=== PATIENT | male | born 1940 | race Caucasian/White ===

== ENCOUNTER 2022-11-07 12:12 | Observation (INO) | payer OTHER ==
--- OUTSIDE RECORDS SUMMARY | 2022-11-07 12:15 | XMS REPORT | Continuity of Care Document ---
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 2-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 00:00: [place] 00 MD [facility] Allergies, Adverse Reactions, Alerts Allergy Allergy Status Severity Reaction(s) Onset Inactive Treating Comm ents Source Name Type Date Date Clinician NO KNOWN Drug Active Univers ALLERGIE Class [facility] [place] [facility] Family History Family Member Diagnosis Comments Start Date Stop Date Source Natural father -Multiple Myeloma [facility] Social History Social Habit Start Date Stop Date Quantity Comments Source Alcohol intake 2018-12-16 2018-12-16 Current drinker Unive rsity of 00:00:00 00:00:00 of alcohol [facility] Tobacco use and 2018-11-06 2018-11-06 Smokeless tobacco Un iversity of exposure 00:00:00 00:00:00 non-user [facility] Sex Assigned At [birth year] [facility] 00:00:00 00:00:00 Abhijeet donovan [facility] Smoking Status Start Date Stop Date Source Never smoked tobacco [facility] Medications Ordered Filled Start Stop Current Ordering Indication Dosage Frequency Signature Comments Components Source Medication Medication Date Date Medication? Clinician (SIG) Name Name aspirin 81 Yes 81mg Take 81 mg U nivers mg EC 4-25 by mouth ity of tablet 13:05: daily. [place] 37 MD Melissa gonzalez [facility] tamsulosin 2017-12 Yes 1{capsu Take 1 Un rey (FLOMAX) 1-28 le} capsule by ity o f 0.4 mg 24 00:00: mouth [place] hr capsule 00 daily. MD Melissa gonzalez [facility] clopidogrel 2017-12 Yes 1{tbl} Take 1 Un rey (PLAVIX) 75 1-15 tablet by ity of mg tablet 00:00: mouth [place] 00 daily. MD Melissa gonzalez [facility] atorvastati 2017-12 Yes 1{tbl} Take 1 Un rey n (LIPITOR) 1-15 tablet by ity of 40 mg 00:00: mouth [place] tablet 00 daily. MD Melissa gonzalez [facility] perindopril 2017-12 Yes 1{tbl} Take 1 Un rey (ACEON) 4 1-15 tablet by ity o f MG tablet 00:00: mouth [place] 00 daily. MD Melissa gonzalez [facility] TOPROL XL 2017-12 Yes 1{tbl} Take 1 Univ ers 25 mg 24 hr 1-15 tablet by ity of tablet 00:00: mouth [place] 00 daily. MD Melissa gonzalez [facility] Procedures This patient has no known procedures. Plan of Care Planned Activity Planned Date Details Comments Source Future Scheduled 2022-06-27 COVID-19 Vaccination [facility] [place] Test 18:22:50 (#1) [code = COVID-19 Cancer Vaccination (#1)] Center Encounters Start End Encounter Admission Attending Care Care Encounter Source Date/Time Date/Time Type Type Clinicians Facility Department ID 2022-08-17 2022-08-17 Emergency X BRAIN KOWALSKI ERT [id number] Univers 13:14:00 14:50:00 FAROOQ willams [facility] Results This patient has no known results.
--- OUTSIDE RECORDS SUMMARY | 2022-11-07 12:15 | XMS REPORT | Clinical Summary ---
:1940 Author Organization [facility] MD [facility] Address [address] [place] [address] Care Team Providers Name Role Phone Laquita Morrison MD Primary Care Provider Gustabo Vega MD Unavailable Cynthia Garcia MD Unavailable [phone] Shereen Jeffery MD Unavailable Allergies No known active allergies Medications Medication Sig Dispensed Refills Start Date End Date Status TOPROL XL 25 mg 24 hr Take 1 tablet by 0 10/16/2018 Active tablet mouth daily. clopidogrel (PLAVIX) 75 Take 1 tablet by 0 8 Active mg tablet mouth daily. atorvastatin (LIPITOR) Take 1 tablet by 0 10/16/2018 Active 40 mg tablet mouth daily. perindopril (ACEON) 4 Take 1 tablet by 0 10/16/2018 Active MG tablet mouth daily. tamsulosin (FLOMAX) 0.4 Take 1 capsule by 0 10/29/20 18 Active mg 24 hr capsule mouth daily. aspirin 81 mg EC tablet Take 81 mg by 0 Active mouth daily. 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 10 y ear 12/01/2013 cycle HERNIA REPAIR 12/02/2009 - 01/01/2010 CORONARY ARTERY BYPASS 12/02/2005 - Dr Heath ceja GRAFT 01/01/2006 OK FTH/GFT FREE W/DIRECT 12/12/2018 Neck/Left Procedu re: FULL CLOSURE N/E/E/L 20 SQ CM/< THICK NESS GRAFT OF EAR; Surgeon: Laquita Morrison MD; Loc ation: MAIN OR; Service : [facility] - HEAD & NECK SURG PAWAN OK EXCISION MALIGNANT 12/12/2018 Ear/Left Procedure: EXCISION OF LESION F/E/E/N/L 0.6-1.0 CM ALBER GNANT LESION OF EAR; Surgeon: Eloy Jeffery MD; Locat ion: MAIN OR; Service : [facility] - HEAD & NECK SURG [facility] Medical History Medical History Date Comments Myocardial infarction 12/2005 1x stent; annual m edical exams with Dr Lu Garcia Basal cell carcinoma of skin Left ear- 2017. Current appointment Family History Medical History Relation Name Comments -Multiple Myeloma Father Lucas West 1969 Relation Name Status Comments Father Lucas West Social History Tobacco Use Types Packs/Day Years Used Date Smoking Tobacco: Never Smokeless Tobacco: Never Alcohol Use Standard Drinks/Week Comments Yes 0 (1 standard drink = 0.6 oz pure alcoho l) Sex Assigned at Date Recorded Not on file Obstetrics History Last Filed Vital Signs Not on file Plan of Treatment Health Maintenance Due Date Last Done Comments COVID-19 Vaccination (#1) 04/29/1941 Results Not on fileafter 11/07/2021 Insurance Payer Benefit Plan Subscriber ID Effective Phone Address Typ e / Group Dates MEDICARE MEDICARE PART [id number] 2005-Pres [phone] [facility] Medicare A AND B ent 82 SOL[address] [place] [address] A[employer] MANAGED AETNA HMO [id number] 2004-Prese [address] HMO CARE EXXON/CANCER nt [id number] [place] [address] Care Teams 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
[2022-11-07 12:54] LABS: Absolute Lymphocytes (CBC) 4.2 K/uL (0.7-4.9); Hematocrit 42.8 % (39.6-49.0); Lymphocytes % 29.8 % (15.3-44.8); MCV 96.6 fL (80-100); MPV 7.4 fL (7.6-11.3); RBC Red Blood Cell Count 4.43 M/uL (4.33-5.43)
[2022-11-07 12:57] LABS: Protime INR 0.95
[2022-11-07 13:12] LABS: Troponin High Sensitivity 5.8 pg/mL (<58.9)
[2022-11-07 13:13] LABS: Potassium 4.1 mmol/L (3.5-5.1)
[2022-11-07 13:14] LABS: SARS-CoV-2 Antigen Rapid Res Negative (Negative)
--- NOTE | 2022-11-07 13:22 | RAD REPORT ---
EXAM DESCRIPTION: RAD - Chest Single View - 11/07/2022 1:10 pm CLINICAL HISTORY: CHEST PAIN COMPARISON: Two view chest 09/16/2008 TECHNIQUE: AP portable chest image was obtained 11/07/2022 1:10 pm . FINDINGS: Lungs are clear. Heart and vasculature are normal. No measurable pleural effusion and no p neumothorax. No acute bony abnormality seen. No acute aortic findings suspected. IMPRESSION: No acute cardiopulmonary process.
--- NOTE | 2022-11-07 13:53 | ER ---
Nurse's Notes [facility] Name: Dinh West Age: 82 yrs Sex: Male : 1940 Arrival Date: 11/07/2022 Time: 12:13 Bed 2 Private MD: Anabell Tam C Diagnosis: Chest pain, unspecified;Atherosclerotic heart disease of [place] coronary artery with angina pectoris Presentation: 11/07 12:15 Chief complaint: Patient states: [facility]; today was at DR Corrigan 1 office and started to have CP at 1120, states moves across chest and up into VINH shoulders. Denies SOB. Coronavirus screen: Vaccine status: Patient reports receiving the 2nd dose of the covid vaccine. Client denies travel out of the [place] in the last 14 days. Ebola Screen: Patient negative for fever greater than or equal to 101.5 degrees Fahrenheit, and additional compatible Ebola Virus Disease symptoms. Initial Sepsis Screen: Does the patient meet any 2 criteria? No. Patient's initial sepsis screen is negative. Does the patient have a suspected source of infection? No. Patient's initial sepsis screen is negative. Risk Assessment: Do you want to hurt yourself or someone else? Patient reports no desire to harm self or others. Onset of symptoms was November 04, 2022. 12:15 Method Of Arrival: Ambulatory vg1 12:15 Acuity: CHITRA 2 vg1 Triage Assessment: 12:17 General: Appears uncomfortable, Behavior is calm, cooperative. Pain: Complains of pain vg1 in chest Pain radiates to VINH shoulder Pain currently is 7 out of 10 on a pain scale. Pain began 2-3 days ago. Cardiovascular: Patient's skin is warm and dry. Respiratory: Airway is patent Respiratory effort is even, unlabored, Denies shortness of breath. Historical: - Allergies: 12:17 No Known Allergies; vg1 - Home Meds: 12:17 Metoprolol Tartrate Oral [Active]; Plavix Oral [Active]; Lipitor Oral [Active]; Flomax vg1 Oral [Active]; - PMHx: 12:17 Myocardial infarction; Hypertensive disorder; Enlarge Prostate; vg1 - PSHx: 12:17 Stented artery; vg1 - Immunization history:: Client reports receiving the 2nd dose of the Covid vaccine. - Social history:: Smoking status: Patient denies any tobacco usage or history of. - Family history:: not pertinent. - Hospitalizations: : No recent hospitalization is reported. Screenin:47 Abuse screen: Denies threats or abuse. Denies injuries from another. Nutritional kc6 screening: No deficits noted. Tuberculosis screening: No symptoms or risk factors identified. Fall Risk None identified. Assessment: 12:47 General: Appears in no apparent distress. comfortable, Behavior is calm, cooperative, kc6 appropriate for age. Pain: Complains of pain in left scapular area, right scapular area, mid-sternal area, right breast and left breast Pain does not radiate. Pain currently is 2 out of 10 on a pain scale. Quality of pain is described as sharp, Pain began 2-3 days ago. Is intermittent, Alleviated by rest, Aggravated by increased activity. Neuro: Barraza Agitation-Sedation Scale (RASS): 0 - Alert and Calm Level of Consciousness is awake, alert, obeys commands, Oriented to person, place, time, situation, Appropriate for age. Cardiovascular: Heart tones S1 S2 present Capillary refill < 3 seconds. Respiratory: Airway is patent Trachea midline Respiratory effort is even, unlabored, Respiratory pattern is regular, symmetrical, Breath sounds are clear bilaterally. GI: No signs and/or symptoms were reported involving the gastrointestinal system. : No signs and/or symptoms were reported regarding the genitourinary system. EENT: No signs and/or symptoms were reported regarding the EENT system. Derm: No signs and/or symptoms reported regarding the dermatologic system. Skin is intact, Skin is pink, warm \T\ dry. Musculoskeletal: No signs and/or symptoms reported regarding the musculoskeletal system. Circulation, motion, and sensation intact. Capillary refill < 3 seconds, Range of motion: intact in all extremities. 13:47 Reassessment: Patient appears in no apparent distress at this time. No changes from kc6 previously documented assessment. Patient and/or family updated on plan of care and expected duration. Pain level reassessed. Patient is alert, oriented x 3, equal unlabored respirations, skin warm/dry/pink. Vital Signs: 12:15 BP 162 / 87; Pulse 78; Resp 16; Temp 98.6; Pulse Ox 97% ; Weight 77.11 kg; Height 5 ft. vg1 8 in. (172.72 cm); Pain 7/10; 12:47 BP 156 / 84; Pulse 78; Resp 15 S; Pulse Ox 97% on R/A; Pain 2/10; kc6 13:47 BP 146 / 70; Pulse 80; Resp 15 S; Pulse Ox 91% on R/A; kc6 19:30 BP 134 / 70; Pulse 91; Resp 15; Pulse Ox 96% on R/A; ll3 20:43 BP 121 / 83; Pulse 95; Resp 17; Pulse Ox 95% on R/A; ll3 12:15 Body Mass Index 25.85 (77.11 kg, 172.72 cm) vg1 ED Course: 12:13 Patient arrived in ED. rg4 12:14 Anabell Tam MD is Private Physician. rg4 12:17 Triage completed. vg1 12:17 Arm band placed on. vg1 12:28 Joshua Royal MD is Attending Physician. rn 12:38 Allie uY RN is Primary Nurse. kc6 12:41 SARS RAPID Sent. kc6 12:45 Inserted saline lock: 20 gauge in right forearm, using aseptic technique. Blood mb9 collected. 12:47 Basic Metabolic Panel Sent. kc6 12:47 CBC with Diff Sent. kc6 12:47 NT PRO-BNP Sent. kc6 12:47 PT-INR Sent. kc6 12:47 Troponin HS Sent. kc6 13:12 XRAY Chest (1 view) In Process Unspecified. EDMS 13:32 Angio Aorta For Dissection In Process Unspecified. EDMS 13:53 Anabell Tam MD is Hospitalizing Provider. rn 19:00 Patient has correct armband on for positive identification. Bed in low position. Call ll3 light in reach. Side rails up X 1. Client placed on continuous cardiac and pulse oximetry monitoring. NIBP monitoring applied. 20:53 Patient maintains SpO2 saturation greater than 95% on room air. ll3 20:53 No provider procedures requiring assistance completed. Patient admitted, IV remains in ll3 place. Administered Medications: 15:52 Drug: Heparin ([place]-Bolus No thrombolytic) - HEParin 60 units/kg {Co-Signature: suhail quinonez (Adeel Gutierrez RN).} Route: IVP; Site: right antecubital; 19:06 Follow up: Response: No adverse reaction kc6 15:55 Drug: Heparin ([place] Drip) 12 units/kg/hr - (HEParin 54112 units, D5W 500 ml) kc6 {Co-Signature: suhail (Adeel Gutierrez RN).} Route: IV; Rate: calculated rate; Site: right antecubital; 16:05 Drug: Aspirin Chewable Tablet 324 mg Route: PO; kc6 19:06 Follow up: Response: No adverse reaction kc6 Medication: 20:53 VIS not applicable for this client. ll3 Outcome: 13:53 Decision to Hospitalize by Provider. rn 20:53 Admitted to Tele accompanied by nurse, via wheelchair, room 411, with chart, Report ll3 called to LUISA Alcazar 20:53 Condition: stable 20:53 Instructed on the need for admit. 21:16 Patient left the ED. 3 Signatures: Dispatcher [employer] Joshua Chavez MD MD rn Garcia, Rubi rg4 Grecia Schmidt RN RN vg1 Jesus Packer RN RN ll3 Allie Yu RN RN kc6 Sara Parra, RN RN mb9 Adeel Gutierrez RN jd3
--- NOTE | 2022-11-07 13:53 | EDPHYS ---
Physician Documentation [facility] Name: Dinh West Age: 82 yrs Sex: Male : 1940 Arrival Date: 11/07/2022 Time: 12:13 Bed 2 Private MD: Anabell Tam C ED Physician Joshua Royal HPI: 11/07 13:48 This 82 yrs old Male presents to ER via Ambulatory with complaints of Chest Pain. rn 13:48 The patient or guardian reports chest pain that is located primarily in the substernal rn area. Onset: 4 day(s) ago. The pain radiates to Associated signs and symptoms: Pertinent positives: shortness of breath, Pertinent negatives: abdominal pain, cough. The chest pain is described as a heaviness, squeezing. Duration: The patient or guardian reports multiple episodes, that are intermittent. Modifying factors: The symptoms are alleviated by nothing. the symptoms are aggravated by nothing. Severity of pain: At its worst the pain was moderate in the emergency department the pain has improved. The patient has experienced similar episodes in the past. The patient has been recently seen by a physician:. Sent by Dr. Tam for chest pain, intermittent, began a few days ago, at rest, radiates to both shoulders and back. + hx of MT. Stopped his plavix and aspirin 4 days ago in preparation for tooth extraction. Minimal pain currently. . Historical: - Allergies: 12:17 No Known Allergies; vg1 - Home Meds: 12:17 Metoprolol Tartrate Oral [Active]; Plavix Oral [Active]; Lipitor Oral [Active]; Flomax vg1 Oral [Active]; - PMHx: 12:17 Myocardial infarction; Hypertensive disorder; Enlarge Prostate; vg1 - PSHx: 12:17 Stented artery; vg1 - Immunization history:: Client reports receiving the 2nd dose of the Covid vaccine. - Social history:: Smoking status: Patient denies any tobacco usage or history of. - Family history:: not pertinent. - Hospitalizations: : No recent hospitalization is reported. ROS: 13:48 Constitutional: Negative for fever, chills, and weight loss, Eyes: Negative for injury, rn pain, redness, and discharge, Neck: Negative for injury, pain, and swelling, Cardiovascular: Negative for palpitations, and edema, Respiratory: Negative for shortness of breath, cough, wheezing, and pleuritic chest pain, Abdomen/GI: Negative for abdominal pain, nausea, vomiting, diarrhea, and constipation, Back: Negative for injury MS/Extremity: Negative for injury and deformity, Skin: Negative for injury, rash, and discoloration, Neuro: Negative for headache, weakness, numbness, tingling, and seizure. Exam: 13:48 Constitutional: This is a well developed, well nourished patient who is awake, alert, rn and in no acute distress. Head/Face: Normocephalic, atraumatic. Cardiovascular: Regular rate and rhythm. No pulse deficits. Respiratory: No increased work of breathing, no retractions or nasal flaring. Abdomen/GI: soft, non-tender Skin: Warm, dry MS/ Extremity: Pulses equal, no cyanosis Neuro: Awake and alert, GCS 15 16:10 ECG was reviewed by the Attending Physician. rn Vital Signs: 12:15 BP 162 / 87; Pulse 78; Resp 16; Temp 98.6; Pulse Ox 97% ; Weight 77.11 kg; Height 5 ft. vg1 8 in. (172.72 cm); Pain 7/10; 12:47 BP 156 / 84; Pulse 78; Resp 15 S; Pulse Ox 97% on R/A; Pain 2/10; kc6 13:47 BP 146 / 70; Pulse 80; Resp 15 S; Pulse Ox 91% on R/A; kc6 19:30 BP 134 / 70; Pulse 91; Resp 15; Pulse Ox 96% on R/A; ll3 20:43 BP 121 / 83; Pulse 95; Resp 17; Pulse Ox 95% on R/A; ll3 12:15 Body Mass Index 25.85 (77.11 kg, 172.72 cm) vg1 MDM: 12:28 Patient medically screened. rn 13:52 Differential diagnosis: acute myocardial infarction, acute pericarditis, coronary rn artery disease pericarditis, pleurisy, pneumonia, pneumothorax, stable angina, thoracic aortic disection, unstable angina. HEART Score: History: Highly Suspicious (2), ECG: Non specific repolarization disturbance / LBTB / PM (1), Age: > or = 65 years (2), Risk Factors: > or = 3 Risk factors for atherosclerotic disease (2), Troponin: < or = 1 x Normal Limit (0), Total Score = 7. Data reviewed: vital signs, nurses notes, lab test result(s), and as a result, I will admit patient. Counseling: I had a detailed discussion with the patient and/or guardian regarding: the historical points, exam findings, and any diagnostic results supporting the discharge/admit diagnosis, lab results, the need for further work-up and treatment in the hospital. Admission orders: after a detailed discussion of the patient's condition and case, the admit orders are written by me. ED course: Discussed case with josue Farley patient admitted with heparin drip after ct aorta neg. . 11/07 12:28 Order name: Basic Metabolic Panel; Complete Time: 13:22 rn 11/07 12:28 Order name: CBC with Diff; Complete Time: 13:22 rn 11/07 12:28 Order name: NT PRO-BNP; Complete Time: 13:22 rn 11/07 12:28 Order name: PT-INR; Complete Time: 13:22 rn 11/07 12:28 Order name: Troponin HS; Complete Time: 13:22 rn 11/07 12:28 Order name: SARS RAPID; Complete Time: 13:22 rn 11/07 12:28 Order name: XRAY Chest (1 view); Complete Time: 15:17 rn 11/07 12:39 Order name: CT Aorta for Dissection rn 11/07 12:43 Order name: Angio Aorta For Dissection; Complete Time: 15:17 EDME 11/07 15:36 Order name: Ptt, Activated kc6 11/07 15:50 Order name: PTT, Activated Partial Thromb EDMS 11/07 19:39 Order name: Ptt, Activated ll3 11/07 20:28 Order name: PTT, Activated Partial Thromb EDME 11/07 12:28 Order name: EKG; Complete Time: 12:29 rn 11/07 12:28 Order name: Cardiac monitoring; Complete Time: 12:39 rn 11/07 12:28 Order name: EKG - Nurse/Tech; Complete Time: 12:41 rn 11/07 12:28 Order name: IV Saline Lock; Complete Time: 12:47 rn 11/07 12:28 Order name: Labs collected and sent; Complete Time: 12:47 rn 11/07 12:28 Order name: O2 Per Protocol; Complete Time: 12:39 rn 11/07 12:28 Order name: O2 Sat Monitoring; Complete Time: 12:39 rn EC:10 Rate is 78 beats/min. Rhythm is regular. Left axis deviation noted. QRS is positive in rn lead I and negative in lead aVF. TN interval is normal. QRS interval is prolonged at 160 msec. QT interval is normal. No Q waves. T waves are Normal. No ST changes noted. Clinical impression: NSR, bifascicular block. Interpreted by me. Reviewed by me. Administered Medications: 15:52 Drug: Heparin ([place]-Bolus No thrombolytic) - HEParin 60 units/kg {Co-Signature: jeliel kc6 (Adeel Gutierrez RN).} Route: IVP; Site: right antecubital; 19:06 Follow up: Response: No adverse reaction kc6 15:55 Drug: Heparin ([place] Drip) 12 units/kg/hr - (HEParin 77106 units, D5W 500 ml) kc6 {Co-Signature: jd3 (Adeel Gutierrez RN).} Route: IV; Rate: calculated rate; Site: right antecubital; 16:05 Drug: Aspirin Chewable Tablet 324 mg Route: PO; kc6 19:06 Follow up: Response: No adverse reaction kc6 Disposition Summary: 11/07/22 13:53 Hospitalization Ordered Hospitalization Status: Observation rn Provider: Anabell Tam [facility]n [facility] rn Condition: Stable rn Problem: new rn Symptoms: have improved rn Bed/Room Type: Standard rn Room Assignment: 411(11/07/22 20:00) cg Diagnosis - Chest pain, unspecified rn - Atherosclerotic heart disease of [place] coronary artery with angina pectoris rn Forms: - Medication Reconciliation Form rn - SBAR form rn Signatures: Dispatcher [employer] Joshua Chavez MD MD rn Garcia, Cindy, RN RN Grecia Davis RN RN vg1 Allie Yu RN RN kc6 Adeel Gutierrez RN jd3 Corrections: (The following items were deleted from the chart) 20:00 13:53 rn cg
--- NOTE | 2022-11-07 14:00 | RAD REPORT ---
EXAM DESCRIPTION: CT - Angio Aorta For Dissection - 11/07/2022 1:32 pm CLINICAL HISTORY: chest pain COMPARISON: Portable chest 11/07/2022 TECHNIQUE: Dynamically enhanced 3 mm thick images of the chest, abdomen, and pelvis were obtained du ring administration of approximately 150mL Isovue 370 IV contrast. Sagittal and coronal reconstructio n images were generated using MIP and reviewed. Exam utilizes a protocol to evaluate entire course of the aorta. All CT scans are performed using dose optimization technique as appropriate and may include automated exposure control or mA/KV adjustment according to patient size. FINDINGS: Aorta is normal in diameter with no dissection or other acute aortic findings. Reconstruct ion images show no significant findings. Scattered atherosclerotic calcifications present without dis placement. Pulmonary arteries are normal as well. No cardiomegaly, pericardial thickening or pericardial effusio n. No significant mass or infiltrate in the lung parenchyma. A punctate subpleural calcified granuloma i s seen anterior right upper lobe. No pleural thickening, pleural effusion or pneumothorax. No abnormal mediastinal or hilar mass or lymphadenopathy seen. No chest wall mass or abnormal axillar y lymphadenopathy. Celiac, SMA and renal arteries show no suspicious findings. Incidental note made of small accessory l eft renal artery. Solid abdominal viscera and bowel show no significant findings. No gallbladder or biliary tree abnormality. Sigmoid diverticulosis is present without diverticulitis. No mass or abnorm al lymphadenopathy. No free air, free fluid or inflammatory stranding. No urinary bladder abnormality . Patient has prominent degenerative endplate spurring in the mid and lower thoracic spine. 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 The L5-S1 disc space is effaced with degenerative gas. Prominent endplate spurring changes are present at this level. IMPRESSION: Scattered aortic atherosclerotic calcifications without aneurysm, dissection or displace d calcification. No acute aortic finding seen. No emergent finding seen in the chest, abdomen or pelvis. Nonacute findings detailed in the body of t he report.
[2022-11-07] MEDS ORDERED: HEPARIN 5000 UNIT/ML 1 ML VIAL ONE (15:46)
[2022-11-07] MEDS ORDERED: HEPARIN/D5W 25,000 UNIT/500 ML BAG IV ONE (15:47)
[2022-11-07] MEDS ORDERED: ASPIRIN 81 MG CHEWABLE TABLET ONE (16:03)
[2022-11-07] MEDS ORDERED: HEPARIN/D5W 25,000 UNIT/500 ML BAG IV SCH (20:53)
[2022-11-07] MEDS ORDERED: ONDANSETRON 4 MG/2 ML VIAL IV PRN (20:53)
[2022-11-07] MEDS ORDERED: MORPHINE 4 MG/ML SYR IV PRN (20:53)
[2022-11-07] MEDS ORDERED: METOPROLOL TAR 25 MG TAB PO ONE (21:11)
[2022-11-07 22:12] VITALS: BMI 26.0
[2022-11-08 05:43] LABS: Absolute Lymphocytes (CBC) 7.2 K/uL (0.7-4.9); Hematocrit 41.3 % (39.6-49.0); Lymphocytes % 46.7 % (15.3-44.8); RBC Red Blood Cell Count 4.21 M/uL (4.33-5.43)
[2022-11-08 06:01] LABS: Albumin 3.3 g/dL (3.4-5.0); Bilirubin Total 0.5 mg/dL (0.2-1.0); Potassium 3.7 mmol/L (3.5-5.1); Protein, Total 5.9 g/dL (6.4-8.2)
--- NOTE | 2022-11-08 07:11 | HP ---
Date of Admission: 11/07/2022 Chief Complaint: Chest pain. History Of Present Illness: This is an 82-year-old very pleasant male patient with prior history of coronary artery disease, who was seeing Dr. 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 Episode lasted for about 10 minutes. No associated nausea, vomiti ng. Pain did radiate to his back in the interscapular region. No diaphoresis. He was doing fine un til today after this episode and while he was at the office before I walked into the room, he actuall y had another episode of chest pain, again similar character and with that in mind, we made arrangeme nts for him to go to the emergency room and details were discussed with ER physician and after he was evaluated in the emergency room, he was admitted to the hospital. Allergies: NO KNOWN ALLERGIES. Medications: Aspirin 81 mg daily, clopidogrel 75 mg daily, atorvastatin 40 mg at bedtime, tamsulosin 0.4 mg daily, metoprolol tartrate 25 mg 2 times a day, famotidine 40 mg daily at bedtime, Aceon 4 mg daily. Review of Systems: Cardiovascular: As mentioned above. All other systems reviewed and negative. Past Medical History: Significant for hypertension, mixed hyperlipidemia, coronary artery disease, i mpaired fasting glucose, gastroesophageal reflux disease, diverticulosis, and benign prostatic hypert rophy. Past Surgical History: The patient had coronary artery angioplasty with stent placement in 2005 and appendectomy. Family History: Father had multiple myeloma. Mother had stroke. Social History: Negative for smoking. Use of alcohol a glass of wine daily. Physical Examination: Vital Signs: When he came to office; blood pressure was 137/74, pulse 75, respiratory rate 18, tempe rature 97.7, weight 175.8 pounds height 69 inches. General: Awake, alert, oriented, not in distress. HEENT: Head atraumatic, normocephalic. Conjunctivae nonerythematous. Sclerae white. Mouth, no thr ush or edema noted. Ears/Nose, no mass, lesion, discharge noted. Neck: Supple. No JVD, lymph nodes, bruit, thyromegaly noted. Lungs: Bilateral good equal air entry. Clear to auscultation. No rhonchi. No rales. Heart: Normal heart sounds, no murmur or gallop. Abdomen: Soft, bowel sounds normal. No guarding, rigidity, tenderness, mass, hepatosplenomegaly, dis tention, or bruit noted. Extremities: No leg edema. No calf tenderness. Skin: No rash, ulcer, cellulitis. Lymphatics: No lymph node enlargement in neck, supraclavicular, infraclavicular region. Neuro: No focal neurological deficit. Chest: Unremarkable. External Genitalia: Deferred. Rectal: Deferred. Laboratory Data: COVID-19 test negative. Troponin 5.8. BNP 143. Chest x-ray, no acute cardiopulmo nary changes. EKG, no acute ST-T changes, normal sinus rhythm. White count 14.1, hemoglobin 14.6, p latelets 269. Sodium 131, potassium 4.1, chloride 96, bicarb 27, BUN 11, creatinine 0.81, glucose 12 5. Impression: 1.Unstable angina. 2.Coronary artery disease. 3.Hypertension. 4.Mixed hyperlipidemia. 5.Impaired fasting glucose. 6.Benign prostatic hypertrophy. 7.Gastroesophageal reflux disease. 8.Diverticulosis. 9.Leukocytosis. 10.Hyponatremia. Plan: Admit the patient to hospital for further evaluation and management of this problem. The bree ent is appropriate for inpatient and is expected to spend 2 midnights in hospital. We will go ahead and consult Cardiology. I did call and discussed details with Dr. Deng and he will evaluate the p atient tomorrow and he will possibly consider cardiac cath, so we will go ahead and keep the patient n.p.o. Meanwhile, we will have the patient start on heparin drip per protocol. Continue aspirin 81 mg daily, statin therapy with atorvastatin 40 mg daily at bedtime. We will get a fasting lipid profi le and cardiac enzymes again tomorrow morning with CBC. Continue antihypertensive medication, metopr olol 25 mg 2 times a day. The patient was not sure and he will check on it once he goes home as he f eels like he was taking metoprolol only once a day instead of twice a day. We will monitor blood pre ssure and make adjustment on antihypertensive medication if it is necessary. Continue famotidine for gastroesophageal reflux disease and tamsulosin for benign prostatic hypertrophy. The patient had st opped his aspirin and clopidogrel as of extraction, which was scheduled to be done on 08/2022. Obviously, this procedure will be canceled and he will not reschedule it until further instr uction. Details and plan of treatment discussed with the patient. I will see him tomorrow morning f or followup. MELISSA/AKHIL Voice ID: [id number]
[2022-11-08] MEDS ORDERED: REGADENOSON 0.4 MG/5 ML SYR IV ONE (07:31)
[2022-11-08] MEDS ORDERED: METOPROLOL TAR 25 MG TAB PO SCH (09:00)
[2022-11-08] MEDS ORDERED: TAMSULOSIN 0.4 MG SR CAP PO SCH (09:00)
[2022-11-08] MEDS ORDERED: ASPIRIN EC 81 MG TAB PO SCH (09:00)
[2022-11-08] MEDS ORDERED: NA CHLORIDE 0.9% 500 ML ONE ×2 (10:49→10:55)
[2022-11-08] MEDS ORDERED: FENTANYL CITR 100 MCG/2 ML ONE (10:54)
[2022-11-08] MEDS ORDERED: LIDOCAINE 1% 20 ML MDV ONE (10:54)
[2022-11-08] MEDS ORDERED: HEPA 1000U/500MLS 1,000 UNIT/500 ML BAG IV ONE (10:54)
[2022-11-08] MEDS ORDERED: NA CHLORIDE 0.9% 0 ML IV ONE (10:55)
[2022-11-08] MEDS ORDERED: MIDAZOLAM HCL 2 MG/2 ML INJ ONE (10:55)
[2022-11-08] MEDS ORDERED: ATROPINE SULF 1 MG/10 ML SYR IV ONE (10:56)
--- NOTE | 2022-11-08 16:02 | EKG ---
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
[2022-11-08 17:00] VITALS: O2SAT 98
[2022-11-08 17:03] VITALS: BP 134/65; TEMP 97.4
[2022-11-08] MEDS ORDERED: ATORVASTATIN 40 MG TAB PO SCH (21:00)
--- NOTE | 2022-11-09 02:36 | DS ---
Date of Discharge: 11/08/2022 Disposition: Discharged to go home. Physical Examination: HEENT: Unremarkable. Lungs: Clear to auscultation. Heart: Sounds normal. Abdomen: Soft. Bowel sounds normal. No guarding, rigidity, tenderness, distention. Extremities: No leg edema. Laboratory Data: Yesterday; white count 14.1, hemoglobin 14.6, platelets 269. Today; white count 15 .4, hemoglobin 13.7, platelets 247. Yesterday; sodium 131, potassium 4.1, chloride 96, bicarb 27, BU N 11, creatinine 0.81, glucose 125. This morning; sodium 135, potassium 3.7, chloride 100, bicarb 29 , BUN 17, creatinine 0.74. Glucose 112. Troponin remained negative. Hospital Course: This is an 82-year-old very pleasant male patient, who came into office yesterday w ith complaints of chest pain at rest. Please see dictated H and P for more information. The patient had 2 episodes of chest pain at rest, which lasted for 10 to 15 minutes. Describes as a squeezing t ype of pain in the center of his chest, radiating to the back. He also had some hard time breathing when he had this chest pain. After he was evaluated, he was admitted to the hospital and there were no beds available right away, so he was sent to emergency room. After his evaluation in the emergenc y room, he was admitted to the hospital. Heparin drip was started. FL was ruled out and Cardiology consultation was requested from Dr. Deng. Today, the patient had cardiac cath done and his stent site appears open and patent and this stent was placed in 2005. He has 20% to 40% stenosis in other coronary arteries. No significant stenosis, where he required any intervention. After the procedure , Dr. Deng called me. From Cardiology point of view, he was stable for discharge. Medically, he was stable for discharge, and I have instructed him to continue all his previous home medication and follow up at my office next week. The patient had stopped his aspirin and Plavix last Saturday in anti cipation of having wisdom teeth extraction, which was scheduled to be done tomorrow. Obviously they will be canceled and we will discuss about appropriate timing of when he should consider that procedu re. Final Diagnoses: 1.Unstable angina. 2.Coronary artery disease. 3.Hypertension. 4.Hyperlipidemia. MELISSA/MODL Voice ID: [id number] Report ID: [id number]
--- NOTE | 2022-11-09 07:42 | ECHO ---
HEIGHT: 5 ft 8 in WEIGHT: 171 lb 8 oz DATE OF STUDY: 11/08/[address]: Alber Tam MD 2-DIMENSIONAL: YES M.MODE: YES DOPPLER: YES COLOR FLOW: YES TDS: PORTABLE: YES DEFINITY: BUBBLE STUDY: DIAGNOSIS: CORONARY ARTERY DISEASE CARDIAC HISTORY: CATHERIZATION: SURGERY: PROSTHETIC VALVE: PACEMAKER: MEASUREMENTS (cm) DIASTOLIC (NORMALS) SYSTOLIC (NORMALS) IVSd 1.3 (0.6-1.2) LA Diam 3.7 (1.9-4.0) LVEF 72% LVIDd 3.5 (3.5-5.7) LVIDs 2.1 (2.0-3.5) %FS 40% LVPWd 1.1 (0.6-1.2) Ao Diam 2.8 (2.0-3.7) 2 DIMENSIONAL ASSESSMENT: RIGHT ATRIUM: NORMAL LEFT ATRIUM: NORMAL RIGHT VENTRICLE: NORMAL LEFT VENTRICLE: NORMAL TRICUSPID VALVE: TRACE TRICUSPID REGURGITATION MITRAL VALVE: TRACE MITRAL REGURGITATION PULMONIC VALVE: NORMAL AORTIC VALVE: CALCIFIED, NO AORTIC STENOSIS PERICARDIAL EFFUSION: NONE AORTIC ROOT: NORMAL LEFT VENTRICULAR WALL MOTION: NORMAL DOPPLER/COLOR FLOW: SEE BELOW COMMENTS: 1. NORMAL LEFT VENTRICULAR EJECTION FRACTION 60-65% AND NORMAL WALL MOTION 2. CALCIFIED AORTIC VALVE, NO AORTIC STENOSIS 3. TRACE MITRAL REGURGITATION, TRACE TRICUSPID REGURGITATION TECHNOLOGIST: YAIR CONTRERAS
== END 2022-11-08 17:41 | disposition home or self-care (01) ==
LOC: ER 12:12 → ERHOLD 15:18 → 4TH 20:11
PROVIDERS: ADMIT Internal Medicine; ATTEND Internal Medicine
DX: I20.0 Unstable angina (principal); I25.10 Atherosclerotic heart disease of native coronary artery without angina pectoris; I10 Essential (primary) hypertension; E78.5 Hyperlipidemia, unspecified; K21.9 Gastro-esophageal reflux disease without esophagitis; K57.90 Diverticulosis of intestine, part unspecified, without perforation or abscess without bleeding; N40.0 Benign prostatic hyperplasia without lower urinary tract symptoms; R73.01 Impaired fasting glucose; E87.1 Hypo-osmolality and hyponatremia; D72.829 Elevated white blood cell count, unspecified; Z20.822 Contact with and (suspected) exposure to COVID-19
CPT/HCPCS: 36415; 71045; 71275; 74175; 80048; 80053; 80061; 83880; 84484; 85025; 85610; 85730; 87811; 93005; 93306; 93454; 96374; 99285; C1893; G0269; G0378; J0461; J0583; J1644; J2250; J2785; J3010; J7040; Q9967